=== PATIENT | female | born 1950 | race Caucasian/White ===

== ENCOUNTER 2017-06-15 14:11 | Emergency (ER) | payer OTHER ==
[~2017-06-15] VITALS: Ht 160 cm; Wt 51.4 kg
[~2017-06-15 14:11] MED LIST: ADVAIR 500/501 DISK IH; ASPIRIN81 M2 PO; DUREZOL 0.100 DROP/5 LEFT EYE; HUMALOG MI100 UNIT/5 SC; INSULIN PUMP SCCONT; LASIX40 MG PO; LORAZEPAM0.5 MG PO; METOPROLOL SUCC25 MG PO; MS CONTIN,ORAMO30 MG PO; MYRBETRIQ25 MG PO; PROLIA60 MG/1 ML SC; TOUJEO SOL300 UNIT/1 SC; ZOCOR20 MG PO; [UNRECOGNIZED DRUG - OTHER] PO
[2017-06-15 15:28] LABS: HEMATOCRIT 33.9 % (36.0-46.0); HEMOGLOBIN 11.9 G/DL (11.9-15.5); MCH 31.5 PG (29.0-34.0); MCHC 35.1 G/DL (30.0-36.0); MCV 89.7 FL (83-99); PLATELET COUNT 179 K/uL (156-360); RBC DIS.WIDTH-CV 12.7 % (11.8-14.6); RBC DIS.WIDTH-SD 42.3 % (39-53); RED BLOOD COUNT 3.78 M/uL (3.80-5.20)
[2017-06-15 15:37] LABS: CHLORIDE 99 mEq/L (99-109); POTASSIUM 4.1 mEq/L (3.7-5.4); SODIUM 133 mEq/L (136-147)
[2017-06-15 15:39] LABS: GLUCOSE 302 mg/dL (70-99)
[2017-06-15 15:43] LABS: CREATININE 0.8 mg/dL (0.6-1.3); GFR ESTIMATE (CALCULATED) > 59 mL/min/; UREA NITROGEN (BUN) 10 mg/dL (9-23)
[2017-06-15 16:13] VITALS: BP 159/74
== END 2017-06-15 16:45 | disposition home or self-care (01) ==
LOC: EME 14:11
PROVIDERS: Emergency Medicine Emergency Medical Services
DX: E11.649 Type 2 diabetes mellitus with hypoglycemia without coma (principal); Z79.4 Long term (current) use of insulin; J44.9 Chronic obstructive pulmonary disease, unspecified; M81.0 Age-related osteoporosis without current pathological fracture; F41.9 Anxiety disorder, unspecified; F32.9 Major depressive disorder, single episode, unspecified; Z87.891 Personal history of nicotine dependence; Z90.49 Acquired absence of other specified parts of digestive tract; Z88.2 Allergy status to sulfonamides; Z88.8 Allergy status to other drugs, medicaments and biological substances
CPT/HCPCS: 80048; 82948; 85027; 99281; 99284